=== PATIENT | male | born 1970 | race Caucasian/White ===

== ENCOUNTER → 2020-06-18 | Outpatient (CLI) | payer OTHER ==
--- NOTE | 2020-06-18 16:08 | RAD ---
EXAM: XR FOOT_RIGHT 2 VIEWS 06/18/2020 10:05 AM CLINICAL INDICATION: Right foot pain COMPARISON: None TECHNIQUE: 2 views of the right FINDINGS: The bones are demineralized. There are probable subacute fractures of the great toe distal phalanx and proximal phalanges at the interphalangeal joint. There may also be some erosions mediall y. There is moderate joint space narrowing and focal soft tissue swelling along the medial aspect of the joint. No other fracture or malalignment. Prominent posterior process of the talus. IMPRESSION: Probable subacute fractures of the great toe distal and proximal phalanges. There may al so be some erosions along the medial cortex and there is masslike overlying soft tissue swelling. If there is no history of trauma, infection or gout would be different considerations. Electronically signed by: Dory Miller MD (06/18/2020 4:06 PM) [id number]
== END ==
LOC: RAD 09:57
PROVIDERS: ATTEND Nurse Practitioner Family
DX: S92.421A Displaced fracture of distal phalanx of right great toe, initial encounter for closed fracture (principal); M20.40 Other hammer toe(s) (acquired), unspecified foot; X58.XXXA Exposure to other specified factors, initial encounter; Y93.89 Activity, other specified; Y92.89 Other specified places as the place of occurrence of the external cause; Y99.8 Other external cause status
CPT/HCPCS: 73620